=== PATIENT | male | born 1970 | race Caucasian/White ===

== ENCOUNTER 2017-09-18 22:00 | Emergency (ER) | payer MEDICAID ==
[~2017-09-18] VITALS: Ht 172.7 cm; Wt 87.5 kg
[2017-09-18 22:07] VITALS: BP_SYST 137
[2017-09-18 23:20] VITALS: BP_SYST 134
== END 2017-09-18 23:20 | disposition home or self-care (01) ==
LOC: SED 22:00
DX: S00.83XA Contusion of other part of head, initial encounter (principal); S20.219A Contusion of unspecified front wall of thorax, initial encounter; S80.02XA Contusion of left knee, initial encounter; V89.2XXA Person injured in unspecified motor-vehicle accident, traffic, initial encounter; Y93.89 Activity, other specified; Y92.410 Unspecified street and highway as the place of occurrence of the external cause; Y99.8 Other external cause status
CPT/HCPCS: 70250-TC; 71010; 73560-TC; 99284

== ENCOUNTER 2021-09-26 06:03 | Emergency (ER) | payer MEDICAID ==
[~2021-09-26] VITALS: Ht 172.7 cm; Wt 92.1 kg
[2021-09-26 06:11] VITALS: BP_SYST 153
[2021-09-26] MEDS ORDERED: KETOROLAC TROMETHAMINE 60 MG/2 ML VIAL IM ONE (06:30)
[2021-09-26 07:18] LABS: BILIRUBIN,URINE NEGATIVE (NEGATIVE); CLARITY/URINE CLEAR (CLEAR); COLOR,URINE YELLOW (YELLOW); GLUCOSE,URINE TRACE (NEGATIVE); KETONES,URINE NEGATIVE (NEGATIVE); LEUKOCYTE ESTERASE ,URINE NEGATIVE (NEGATIVE); NITRITE, URINE NEGATIVE (NEGATIVE); PROTEIN URINE 1+ (NEGATIVE)
[2021-09-26 07:23] LABS: BLOOD, URINE TRACE (NEGATIVE)
[2021-09-26 07:34] LABS: RBC,URINE 0-3 /HPF (0-3); WBC,URINE NONE SEEN /HPF (0-3)
[2021-09-26 07:35] LABS: BACTERIA,URINE RARE /HPF (None Seen)
[2021-09-26 07:36] LABS: BASOPHILS # (AUTO) 0.1 K/uL (0.0-0.2); BASOPHILS % (AUTO) 0.4 % (0.0-2.0); EOSINOPHILS % (AUTO) 0.1 % (0.0-4.0); HEMATOCRIT 45.3 % (36-54); HEMOGLOBIN 15.8 g/dL (14.0-18.0); LYMPHOCYTES # (AUTO) 0.5 K/uL (1.0-5.5); MEAN CORPUSCULAR HEMOGLOBIN 30 pg (27-31); MEAN CORPUSCULAR HGB CONC 35 % (32-36); MEAN CORPUSCULAR VOLUME 87 fL (79.0-98.0); MONOCYTES # (AUTO) 0.3 K/uL (0.0-1.0); MONOCYTES % (AUTO) 2.5 % (1.7-9.3); NEUTROPHILS # (AUTO) 12.5 K/uL (1.8-7.7); PLATELET COUNT (AUTO) 220 K/uL (130-430); RED BLOOD CELL COUNT(AUTO) 5.21 MIL/uL (4.2-6.2); RED CELL DISTRIBUTION WIDTH 12.3 % (9.0-15.0); WHITE BLOOD COUNT (AUTO) 13.4 K/uL (4.8-10.8)
[2021-09-26 07:52] LABS: ANION GAP 9 (5-15); CALCIUM 9.5 mg/dL (8.4-11.0); CHLORIDE 99 mmol/L (98-107); CREATININE 1.12 mg/dL (0.55-1.30); GLUCOSE 212 mg/dL (70-99); POTASSIUM 4.1 mmol/L (3.5-5.1); SODIUM SERUM 137 mmol/L (136-145); UREA NITROGEN, BLOOD 15 mg/dL (8-21)
[2021-09-26 07:53] LABS: PROTHROMBIN TIME 10.6 SECS (9.5-12.5)
[2021-09-26 07:59] LABS: GFR AFRICAN AMERICAN 89 mL/min (>90)
[2021-09-26 08:03] LABS: ALANINE AMINOTRANSFERASE 91 U/L (12-78); ALBUMIN 4.2 g/dL (3.4-4.8); AMYLASE 43 U/L (0-100); ASPARTATE AMINOTRANSFERASE 41 U/L (10-37); LIPASE 87 U/L (73-393); TOTAL BILIRUBIN 1.1 mg/dL (0.0-1.0)
[2021-09-26] MEDS ORDERED: HYDR-3917 PO (08:05)
[2021-09-26] MEDS ORDERED: IBUP-1971 PO (08:05)
[2021-09-26 08:07] LABS: C-REACTIVE PROTEIN QUANT < 0.2 mg/dL (0-0.5)
[2021-09-26 08:30] VITALS: BP_SYST 153
== END 2021-09-26 08:29 | disposition home or self-care (01) ==
LOC: SED 06:03
DX: N23 Unspecified renal colic (principal); Z79.899 Other long term (current) drug therapy
CPT/HCPCS: 36415; 74176; 76376; 80053; 81000; 82150; 83605; 83690; 85025; 85610; 85730; 86140; 96372; 99284; J1885

== ENCOUNTER 2022-12-02 19:18 | Emergency (ER) | payer MEDICAID ==
[~2022-12-02] VITALS: Ht 172.7 cm; Wt 92.1 kg
[~2022-12-02 19:18] MED LIST: HYDR-3917 PO; IBUP-1971 PO
--- NOTE | 2022-12-02 19:33 | NUR ---
EKG ADMINISTERED IN TRIAGE - SINUS RHYTHM
[2022-12-02 19:34] VITALS: BP_SYST 144
--- NOTE | 2022-12-02 19:39 | NUR ---
Note undone in EDM - 12/02/22 at 2002 by [email or web address] Patient triaged and placed in waiting room. VS checked and patient appears in no acute distress at this time. Accompanied by family, awaiting available bed, and MD notified of need for MSE.
[2022-12-02 19:55] VITALS: BP_SYST 139
--- NOTE | 2022-12-02 20:03 | NUR ---
Patient triaged and placed in waiting room. VS checked and patient appears in no acute distress at this time. Accompanied by self, awaiting available bed, and MD notified of need for MSE.
[2022-12-02 21:29] LABS: BILIRUBIN,URINE NEGATIVE (NEGATIVE); BLOOD, URINE 2+ (NEGATIVE); CLARITY/URINE CLEAR (CLEAR); COLOR,URINE YELLOW (YELLOW); GLUCOSE,URINE NEGATIVE (NEGATIVE); KETONES,URINE NEGATIVE (NEGATIVE); LEUKOCYTE ESTERASE ,URINE NEGATIVE (NEGATIVE); NITRITE, URINE NEGATIVE (NEGATIVE); PH,URINE 6.5 (5.0-8.0); PROTEIN URINE TRACE (NEGATIVE); UROBILINOGEN,URINE 0.2 (0.2-1.0)
[2022-12-02 21:42] LABS: BACTERIA,URINE FEW /HPF (None Seen); MUCUS,URINE None Seen /LPF (None Seen); WBC,URINE 0-3 /HPF (0-3)
--- NOTE | 2022-12-02 22:14 | NUR ---
Patient ambulatory to bed 6 for evaluation and treatment
--- NOTE | 2022-12-02 22:25 | NUR ---
PATIENT TO ROOM 6 ASSISTED INTO GOWN AND PLACED ON MONITOR, INFORMED OF PLAN OF CARE AT THIS TIME.#20G ESTABLISHED IN RIGHT AC AREA, NO S/S OF ANY DISTRESS NOTED C/O PAIN TO RLQ AND RIGHT FLANK PAIN, WILL MEDICATE PER ORDER. SIDE RAILS UP WILL CONTINUE TO MONITOR.
[2022-12-02] MEDS ORDERED: KETOROLAC TROMETHAMINE 30 MG VIAL IVP ONE (22:45)
[2022-12-02] MEDS ORDERED: MORPHINE 4 MG INJ. 4 MG/ML VIAL IVP ONE (22:45)
[2022-12-02] MEDS ORDERED: NACL 0.9% 1,000 ML IV ONE (22:45)
--- NOTE | 2022-12-02 23:01 | NUR ---
MRETURNED FROM TEST, MEDSICATED PER ORDER, IVF INFUSING PER ORDER.
[2022-12-02 23:06] LABS: BASOPHILS % (AUTO) 0.3 % (0.0-2.0); EOSINOPHILS # (AUTO) 0.1 K/uL (0.0-0.4); EOSINOPHILS % (AUTO) 0.7 % (0.0-4.0); HEMATOCRIT 45.6 % (36-54); HEMOGLOBIN 15.4 g/dL (14.0-18.0); LYMPHOCYTES # (AUTO) 1.4 K/uL (1.0-5.5); LYMPHOCYTES % (AUTO) 9.5 % (20.5-51.5); MEAN CORPUSCULAR HEMOGLOBIN 30 pg (27-31); MEAN CORPUSCULAR HGB CONC 34 % (32-36); MEAN CORPUSCULAR VOLUME 88 fL (79.0-98.0); MONOCYTES # (AUTO) 1.1 K/uL (0.0-1.0); MONOCYTES % (AUTO) 7.5 % (1.7-9.3); NEUTROPHILS # (AUTO) 12.5 K/uL (1.8-7.7); PLATELET COUNT (AUTO) 225 K/uL (130-430); RED BLOOD CELL COUNT(AUTO) 5.19 MIL/uL (4.2-6.2); RED CELL DISTRIBUTION WIDTH 12.5 % (9.0-15.0); WHITE BLOOD COUNT (AUTO) 15.2 K/uL (4.8-10.8)
[2022-12-02 23:24] LABS: CALCIUM 9.5 mg/dL (8.4-11.0); CREATININE 1.11 mg/dL (0.55-1.30)
[2022-12-02 23:29] LABS: ALBUMIN 4.1 g/dL (3.4-4.8); TOTAL BILIRUBIN 0.9 mg/dL (0.0-1.0)
[2022-12-03] MEDS ORDERED: HYDR-3919 PO (00:07)
[2022-12-03 00:23] VITALS: BP_SYST 151
--- NOTE | 2022-12-03 00:26 | NUR ---
ACI GIVEN, Sates understanding,SALINE LOCK REMOVEDREMAINS STABLE FOR DISCHARGE.
== END 2022-12-03 00:25 | disposition home or self-care (01) ==
LOC: SED 19:18
DX: N20.0 Calculus of kidney (principal); N23 Unspecified renal colic; R31.9 Hematuria, unspecified; Z79.899 Other long term (current) drug therapy
CPT/HCPCS: 99284; 74176; 96374; 96375; 80053; 81000; 85025; 36415; 76376; J1885; J2270